=== PATIENT | male | born 1955 | race Two or more races ===

== ENCOUNTER 2018-07-29 10:27 | Emergency (ER) | payer OTHER ==
[~2018-07-29] VITALS: Ht 177.8 cm; Wt 77.1 kg
[2018-07-29] MEDS ORDERED: PANTOPRAZOLE 40 MG/10 ML VIAL IV STA (10:37)
[2018-07-29] MEDS ORDERED: SODIUM CHLORIDE 0.9% 500 ML IVB ONE (10:37)
[2018-07-29] MEDS ORDERED: ONDANSETRON HCL 4 MG/2 ML VIAL IV ONE (10:45)
[2018-07-29] MEDS ORDERED: MORPHINE SULFATE 4 MG/ML SYR/VIAL IV ONE (10:45)
[2018-07-29 11:40] LABS: Basophils # (auto) 0.1 uL; Basophils % (auto) 0.7 % (0.0-2.0); Eosinophils # (auto) 0 uL; Eosinophils % (auto) 0.6 % (0.0-7.0); Hematocrit 48.2 % (41.0-53.0); Hemoglobin 16.6 g/dL (13.5-17.5); Lymphocytes % (auto) 26.6 % (10.0-50.0); Mean Corpuscular Hemoglobin 31.1 pg (28.0-32.0); Mean Corpuscular Hgb Conc. 34.4 g/dL (32.0-36.0); Mean Corpuscular Volume 90.3 fL (80.0-100.0); Monocytes # (auto) 0.6 uL; Neutrophils # (auto) 4.8 uL; Neutrophils % (auto) 64.1 % (37.0-80.0); Platelet Count (auto) 173 10^3/uL (140-450); Red Blood Cells 5.34 10^6/uL (4.5-5.90); Red Cell Distribution Width 13.3 % (11.8-14.3); White Blood Cell 7.5 10^3/uL (4.4-10.8)
[2018-07-29 11:41] VITALS: BP 122/76
[2018-07-29 12:06] LABS: Alanine Aminotransferase 25 U/L (16-61); Albumin 3.7 g/dL (3.4-5.0); Amylase 42 U/L (25-115); Anion Gap 10 (5-15); Aspartate Aminotransferase 23 U/L (15-37); BUN/Creatinine Ratio 18.9; Blood Urea Nitrogen 18 mg/dL (7-18); Calcium 8.9 mg/dL (8.5-10.1); Carbon Dioxide 25 mmol/L (21-32); Chloride 103 mmol/L (98-107); GFR African American 104 mL/min; GFR Non-African American 86 mL/min; Glucose 92 mg/dL (74-106); Lipase 55 U/L (73-393); Magnesium 2.2 mg/dL (1.6-2.6); Potassium 4.3 mmol/L (3.5-5.1); Sodium 138 mmol/L (136-145)
[2018-07-29 12:11] LABS: Alkaline Phosphatase 80 U/L (45-117); Bilirubin, Total 0.8 mg/dL (0.2-1.0); Total Protein 8.2 g/dL (6.4-8.2)
[2018-07-29 12:23] LABS: Urine Bacteria NONE SEEN /hpf (None Seen); Urine Blood TRACE /uL (Negative); Urine WBC <1 /hpf (0 - 3)
== END 2018-07-29 13:36 | disposition home or self-care (01) ==
LOC: ER 10:27 → EDUNIT# 10:27 → EDBD 10:27 → EDSEX 10:27 → ER 13:36
DX: K80.20 Calculus of gallbladder without cholecystitis without obstruction (principal); M25.511 Pain in right shoulder; E78.5 Hyperlipidemia, unspecified; I10 Essential (primary) hypertension; I25.10 Atherosclerotic heart disease of native coronary artery without angina pectoris; Z95.1 Presence of aortocoronary bypass graft; Z98.890 Other specified postprocedural states; Z88.0 Allergy status to penicillin; Z88.2 Allergy status to sulfonamides
CPT/HCPCS: 36415; 74176; 76705; 80053; 81001; 82150; 83690; 83735; 84484; 85025; 94761; 96374; 96375; 99284; C9113; J2270; J2405

== ENCOUNTER 2018-07-31 02:44 | Emergency (ER) | payer OTHER ==
[~2018-07-31] VITALS: Ht 177.8 cm; Wt 77.1 kg
[2018-07-31 03:01] LABS: Basophils # (auto) 0 uL; Basophils % (auto) 0.4 % (0.0-2.0); Eosinophils # (auto) 0 uL; Eosinophils % (auto) 0.2 % (0.0-7.0); Hematocrit 47.7 % (41.0-53.0); Hemoglobin 16.2 g/dL (13.5-17.5); Lymphocytes # (auto) 1.8 uL; Lymphocytes % (auto) 14.4 % (10.0-50.0); Mean Corpuscular Hemoglobin 30.7 pg (28.0-32.0); Mean Corpuscular Volume 90.6 fL (80.0-100.0); Monocytes # (auto) 0.5 uL; Monocytes % (auto) 3.7 % (0.0-12.0); Neutrophils % (auto) 81.3 % (37.0-80.0); Platelet Count (auto) 198 10^3/uL (140-450); Red Blood Cells 5.27 10^6/uL (4.5-5.90); Red Cell Distribution Width 13.4 % (11.8-14.3); White Blood Cell 12.3 10^3/uL (4.4-10.8)
[2018-07-31 03:16] LABS: INR 0.95 (0.9-1.15); Partial Thromboplastin Time 29.3 sec (23.78-33.04); Prothrombin Time 10.2 sec (9.27-12.13)
[2018-07-31 03:20] LABS: Albumin 3.5 g/dL (3.4-5.0); Amylase 51 U/L (25-115); Anion Gap 11 (5-15); BUN/Creatinine Ratio 21.3; Blood Urea Nitrogen 19 mg/dL (7-18); Calcium 8.8 mg/dL (8.5-10.1); Carbon Dioxide 22 mmol/L (21-32); Chloride 104 mmol/L (98-107); GFR African American 112 mL/min; GFR Non-African American 92 mL/min; Glucose 155 mg/dL (74-106); Lipase 64 U/L (73-393); Magnesium 2.2 mg/dL (1.6-2.6); Potassium 3.7 mmol/L (3.5-5.1); Sodium 137 mmol/L (136-145)
[2018-07-31 03:25] LABS: Alanine Aminotransferase 22 U/L (16-61); Alkaline Phosphatase 80 U/L (45-117); Aspartate Aminotransferase 18 U/L (15-37); Bilirubin, Total 0.6 mg/dL (0.2-1.0); Total Protein 8.1 g/dL (6.4-8.2)
[2018-07-31] MEDS ORDERED: SODIUM CHLORIDE 0.9% 1,000 ML IV ONE (06:16)
[2018-07-31 11:30] VITALS: BP 146/73
== END 2018-07-31 12:00 | disposition home or self-care (01) ==
LOC: EDUNIT# 02:44 → ER 02:44
DX: K80.20 Calculus of gallbladder without cholecystitis without obstruction (principal); I70.90 Unspecified atherosclerosis; I25.810 Atherosclerosis of coronary artery bypass graft(s) without angina pectoris; K59.01 Slow transit constipation; E78.5 Hyperlipidemia, unspecified; I10 Essential (primary) hypertension
CPT/HCPCS: 36415; 71045; 74176; 80053; 82150; 83690; 83735; 84484; 85025; 85610; 85730; 93005; 99284; J7030

== ENCOUNTER 2022-09-14 15:51 | Emergency (ER) | payer OTHER ==
[~2022-09-14] VITALS: Ht 177.8 cm; Wt 79.0 kg
[2022-09-14 17:02] LABS: Basophils # (auto) 0.1 10 ^3/uL (0-0.2); Eosinophils # (auto) 0.1 10 ^3/uL (0-0.8); Hemoglobin 7.2 g/dL (13.5-17.5); Monocytes # (auto) 0.4 10 ^3/uL (0-1.3); Monocytes % (auto) 7.6 % (0.0-12.0); Neutrophils # (auto) 3.3 10 ^3/uL (1.6-8.6)
[2022-09-14 17:04] LABS: Basophils % (auto) 1.5 % (0.0-2.0); Eosinophils % (auto) 1.6 % (0.0-7.0); Hematocrit 22.3 % (41.0-53.0); Lymphocytes # (auto) 1.7 10 ^3/uL (0.4-5.4); Lymphocytes % (auto) 30.9 % (10.0-50.0); Mean Corpuscular Hemoglobin 27.7 pg (28.0-32.0); Mean Corpuscular Hgb Conc. 32.1 g/dL (32.0-36.0); Mean Corpuscular Volume 86.3 fL (80.0-100.0); Neutrophils % (auto) 58.4 % (37.0-80.0); Nucleated Red Blood Cells % 0.1 %; Red Blood Cells 2.59 10^6/uL (4.5-5.90); Red Cell Distribution Width 15.2 % (11.8-14.3); White Blood Cell 5.6 10^3/uL (4.4-10.8)
[2022-09-14 17:17] LABS: Calcium 8.4 mg/dL (8.5-10.1); Potassium 4.3 mmol/L (3.5-5.1)
[2022-09-14 17:22] LABS: BUN/Creatinine Ratio 23.9 (10.0-20.0); Bilirubin, Total 0.4 mg/dL (0.2-1.0); Total Protein 6.1 g/dL (6.4-8.2)
[2022-09-14] MEDS ORDERED: IOHEXOL 350 MG/ML 100ML IJ ONE (21:17)
[2022-09-14 23:08] LABS: Basophils # (auto) 0.1 10 ^3/uL (0-0.2); Eosinophils # (auto) 0.1 10 ^3/uL (0-0.8); Neutrophils # (auto) 3.5 10 ^3/uL (1.6-8.6)
[2022-09-14 23:09] LABS: Basophils % (auto) 1.3 % (0.0-2.0); Eosinophils % (auto) 1.9 % (0.0-7.0); Hematocrit 19.7 % (41.0-53.0); Lymphocytes # (auto) 2.2 10 ^3/uL (0.4-5.4); Lymphocytes % (auto) 33.9 % (10.0-50.0); Mean Corpuscular Hemoglobin 28.2 pg (28.0-32.0); Mean Corpuscular Hgb Conc. 32.8 g/dL (32.0-36.0); Mean Corpuscular Volume 85.9 fL (80.0-100.0); Monocytes # (auto) 0.5 10 ^3/uL (0-1.3); Monocytes % (auto) 7.9 % (0.0-12.0); Nucleated Red Blood Cells % 0.1 %; Red Blood Cells 2.29 10^6/uL (4.5-5.90); White Blood Cell 6.4 10^3/uL (4.4-10.8)
[2022-09-14 23:15] LABS: Hemoglobin 6.5 g/dL (13.5-17.5)
[2022-09-14] MEDS ORDERED: PANTOPRAZOLE 40 MG/10 ML VIAL INJ IV ONE (23:30)
[2022-09-14] MEDS ORDERED: cefTRIAXone 1GM/50ML D5W 50 ML IV ONE (23:45)
[2022-09-14] MEDS ORDERED: HYDROcodone-ACET 10/325MG TAB PO ONE (23:45)
[2022-09-15 00:44] LABS: Urine Bacteria NONE SEEN /hpf (None Seen); Urine Blood Negative /uL (Negative); Urine Specific Gravity 1.045 (1.001-1.035); Urine WBC <1 /hpf (0 - 3)
[2022-09-15 02:05] VITALS: BP 109/47
[2022-09-15 02:30] VITALS: BP 105/56
[2022-09-15 05:48] VITALS: BP 93/54
[2022-09-15 06:00] VITALS: BP 95/52
== END 2022-09-15 06:00 | disposition short-term general hospital (02) ==
LOC: ER 15:53
DX: D64.9 Anemia, unspecified (principal); R53.1 Weakness; I25.10 Atherosclerotic heart disease of native coronary artery without angina pectoris; I34.0 Nonrheumatic mitral (valve) insufficiency; E78.5 Hyperlipidemia, unspecified; I10 Essential (primary) hypertension; Z95.1 Presence of aortocoronary bypass graft; Z79.2 Long term (current) use of antibiotics; Z20.822 Contact with and (suspected) exposure to COVID-19
CPT/HCPCS: 36415; 36430; 71045; 71275; 74176; 80053; 81001; 83605; 83880; 84484; 85025; 85379; 86850; 86900; 86901; 86920; 87426; 93005; 96365; 96375; 99285; C9113; J0696; P9016; Q9967